=== PATIENT | female | born 1975 | race Caucasian/White ===

== ENCOUNTER 2020-04-07 09:21 | Emergency (ER) | payer MEDICAID ==
[2020-04-07] MEDS ORDERED: ACETAMINOPHEN-CAFF-BUTALBITAL 1 EA TAB PO ONE (09:57)
[2020-04-07] MEDS ORDERED: predniSONE 20 MG TAB PO ONE (09:57)
--- NOTE | 2020-04-07 10:59 | RAD ---
EXAM DESCRIPTION: Sacrum and coccyx, 3 radiographs CLINICAL HISTORY: Sacrococcygeal pain FINDINGS/ IMPRESSION: No advanced arthrosis of the sacroiliac joints. No evidence of inflammatory arthritis. Minimal degenerative changes Sacral neural foraminal lines are intact. No sacral fracture. No lytic or blastic bony lesion Calcified mass in the pelvis most consistent with calcified fibroid measuring 4.4 cm Electronically signed by: Ronny Clinton MD 04/07/2020 10:58 AM CDT
--- NOTE | 2020-04-07 11:05 | ED.PDOC ---
History of Present Illness - General Chief Complaint: Back Pain or Injury Stated Complaint: Tailbone pain Time Seen by Provider: 04/07/20 09:28 Source: patient Exam Limitations: no limitations - History of Present Illness Initial Comments: The patient is a 44-year-old female presented emergency room secondary to pain in the sacral and coccyx area. The patient reports that the pain is been worsening over the last 3 weeks. She does have some tenderness to palpation over the midline area extending from S1 all the way down to the coccyx. She reports that she had a significant fall last year and since that time is had some mild intermittent pain in the area. She does have apparently a known uterine fibroid. No real abdominal pain. No weight changes. No pain in her hips. No pain in the back above that. No recent trauma. She does report the following issues she has been off of her levothyroxine for the last 6 months or so. She reports that she was normally on 175 mcg of Synthroid daily. No altered mental status. No weight changes. No syncope or near syncope. She reports that she has been doing a lot more walking lately and she believes that that has aggravated the area. No history of any pilonidal cyst. The area is tender to palpation. No visible changes consistent with a pilonidal cyst at this time. No obvious acute trauma on exam. No erythema. No incontinence and no lower extremity sensory or muscular changes. Timing/Duration: constant, getting worse, other - 3 weeks Severity: moderate Improving Factors: immobilization Worsening Factors: movement Associated Symptoms: denies symptoms Allergies/Adverse Reactions: Allergies NO KNOWN ALLERGY Allergy (Verified 04/07/20 09:46) Home Medications: Ambulatory Orders Cyclobenzaprine HCl [Flexeril] 10 mg PO TID PRN #20 tab 04/07/20 Levothyroxine Sodium 125 mcg PO DAILY #30 tab 04/07/20 predniSONE [Prednisone] 20 mg PO DAILY #5 tab 04/07/20 Review of Systems - Review of Systems Constitutional: States: no symptoms reported EENTM: States: no symptoms reported Respiratory: States: no symptoms reported Cardiology: States: no symptoms reported Gastrointestinal/Abdominal: States: no symptoms reported Genitourinary: States: no symptoms reported Musculoskeletal: States: back pain Skin: States: no symptoms reported Neurological: States: no symptoms reported Endocrine: States: no symptoms reported All other Systems: No Change from Baseline Past Medical History (General) - Patient Medical History Hx Congestive Heart Failure: No Hx Thyroid Disease: Yes - hypothyroidism Hx Diabetes: No Surgical History: cholecystectomy - Vaccination History Hx Influenza Vaccination: Yes - Social History Hx Alcohol Use: No - Activities of Daily Living Hospice Agency (if applicable):: None - Female History Patient is a Female of Child Bearing Age (10 -59 yrs old): Yes Patient : No - Triage Comment ED Triage Comment: pt voices her tailbone has been hurting for around a year and is worsening over the past couple days Family Medical History - Family History Mother Family History: Unknown Physical Exam - Physical Exam General Appearance: Alert, Comfortable, No apparent distress Eye Exam: bilateral normal Ears, Nose, Throat: hearing grossly normal, normal pharynx Neck: non-tender, supple Respiratory: no respiratory distress, no accessory muscle use Cardiovascular/Chest: normal peripheral pulses, no edema, other Peripheral Pulses: radial,right: 2+, radial,left: 2+, dorsalis pedis,right: 2+, dorsalis pedis,left: 2+ Gastrointestinal/Abdominal: non tender, soft Rectal Exam: deferred Back Exam: no CVA tenderness, vertebral tenderness - See history of present illness Extremity: normal range of motion, non-tender, normal inspection, no pedal edema, normal capillary refill Neurologic: dietitian therapeutic II-XII nml as tested, alert, normal mood/affect, oriented x 3 Skin Exam: normal color Comments: Vital Signs - 24 hr 04/07/20 04/07/20 04/07/20 09:35 09:55 10:30 Temperature 98.0 F Pulse Rate [ 87 87 67 brachial] Respiratory 18 18 20 Rate Blood Pressure 148/84 123/83 [Right Arm] O2 Sat by Pulse 98 98 Oximetry Progress - Progress Progress: 04/07/20 11:06 The patient is a 44-year-old female presented emergency room secondary to acute on chronic sacral and coccygeal pain worsening over the last 3 weeks likely due to increased physical demand. The patient is going to be written for prednisone for the next 5 days to help reduce inflammation. I will also write her for Flexeril for as needed use. Additionally, the patient has a history of hypothyroidism that is not currently being treated. I will write her for 1 month of 125 mcg Synthroid. She does need to obtain a primary care doctor to obtain follow-up for this problem. She does understand that hypothyroidism can be life-threatening if ignored long enough. Encourage stretching exercises before she ambulates in the morning. Topical heat may also help reduce discomfort. Tylenol and Motrin can still be used for discomfort. ER warnings are given. 04/07/20 11:08 keith stiles [id number] - Results/Orders Results/Orders: X-ray of the sacrum and coccyx shows no evidence of any acute bony trauma and no advanced arthritis. She does have a 4.4 cm calcified mass most consistent with a fibroid which is consistent with her history. No evidence of any bony lytic lesions. No evidence of fracture or dislocations Departure - Departure Clinical Impression: Sacral pain Disposition: Discharge to Home or Self Care Condition: Fair Departure Forms: ED Discharge - Pt. Copy, Patient Portal Self Enrollment Diet: regular diet Activity: increase activity as tolerated Referrals: Rob Stubbs MD [Primary Care Provider] - 1-2 Weeks Prescriptions: Cyclobenzaprine HCl [Flexeril] 10 mg PO TID PRN #20 tab PRN Reason: Muscle Spasms Levothyroxine Sodium 125 mcg PO DAILY #30 tab predniSONE [Prednisone] 20 mg PO DAILY #5 tab Home Medications: Ambulatory Orders Cyclobenzaprine HCl [Flexeril] 10 mg PO TID PRN #20 tab 04/07/20 Levothyroxine Sodium 125 mcg PO DAILY #30 tab 04/07/20 predniSONE [Prednisone] 20 mg PO DAILY #5 tab 04/07/20 Additional Instructions: The patient is a 44-year-old female presented emergency room secondary to acute on chronic sacral and coccygeal pain worsening over the last 3 weeks likely due to increased physical demand. The patient is going to be written for prednisone for the next 5 days to help reduce inflammation. I will also write her for Flexeril for as needed use. Additionally, the patient has a history of hypothyroidism that is not currently being treated. I will write her for 1 month of 125 mcg Synthroid. She does need to obtain a primary care doctor to obtain follow-up for this problem. She does understand that hypothyroidism can be life-threatening if ignored long enough. Encourage stretching exercises before she ambulates in the morning. Topical heat may also help reduce discomfort. Tylenol and Motrin can still be used for discomfort. ER warnings are given.
[2020-04-07 11:40] VITALS: BP 125/72; TEMP 97.2; O2SAT 100
== END 2020-04-07 11:20 | disposition home or self-care (01) ==
LOC: ER 09:21
DX: M53.3 Sacrococcygeal disorders, not elsewhere classified (principal); E03.9 Hypothyroidism, unspecified
CPT/HCPCS: 36415; 72220; 81025; J7512